=== PATIENT | male | born 1970 | race Caucasian/White ===

== ENCOUNTER 2017-08-31 08:51 | Emergency (ER) | payer BC, MEDICAID ==
[~2017-08-31] VITALS: Ht 172.7 cm; Wt 66.0 kg
[2017-08-31] MEDS ORDERED: IBUP-1222 PO (09:13)
[2017-08-31] MEDS ORDERED: HYDR-3240 PO (09:13)
[2017-08-31 09:54] LABS: RAPID INFLUENZA A POSITIVE (Negative)
[2017-08-31 09:55] LABS: RAPID INFLUENZA B Negative (Negative)
[2017-08-31] MEDS ORDERED: ACETAMINOPHEN 325 MG TABLET PO ONE (10:00)
[2017-08-31] MEDS ORDERED: ACETAMINOPHEN 325 MG TABLET ONE (10:05)
[2017-08-31 10:55] VITALS: BP 120/68
== END 2017-08-31 10:57 | disposition home or self-care (01) ==
LOC: ED 10:00
DX: J09.X2 Influenza due to identified novel influenza A virus with other respiratory manifestations (principal); F20.9 Schizophrenia, unspecified; F31.9 Bipolar disorder, unspecified
CPT/HCPCS: 71020; 87400; 93005; 99285

== ENCOUNTER 2017-12-31 18:16 | Emergency (ER) | payer MEDICAID ==
[~2017-12-31] VITALS: Ht 172.7 cm; Wt 61.8 kg
[~2017-12-31 18:16] MED LIST: HYDR-3240 PO; IBUP-1222 PO
[2017-12-31 18:17] VITALS: BP 122/80
[2017-12-31 19:01] LABS: BASOPHILS # (AUTO) 0.02 x10^3/uL (0-0.1); BASOPHILS % (AUTO) 0 % (0-1); EOSINOPHILS # (AUTO) 0.28 x10^3/uL (0-0.4); EOSINOPHILS % (AUTO) 2 % (1-7); LYMPHOCYTES # (AUTO) 2.46 x10^3/uL (1-3.4); LYMPHOCYTES % (AUTO) 22 % (22-44); MD NO; MEAN CORPUSCULAR HEMOGLOBIN 30.3 pg (27.5-34.5); MEAN CORPUSCULAR HGB CONC 34.2 g/dL (33.2-36.2); MEAN CORPUSCULAR VOLUME 88.6 fL (81-97); MEAN PLATELET VOLUME 7.7 fL (7.4-10.4); MONOCYTES % (AUTO) 4 % (2-9); NEUTROPHILS # (AUTO) 8.18 x10^3/uL (1.8-6.8); NEUTROPHILS % (AUTO) 72 % (42-75); PLATELET COUNT 377 x10^3/uL (130-400); RED BLOOD COUNT 5.18 x10^6/uL (4.38-5.82); RED CELL DISTRIBUTION WIDTH 14.2 % (9.4-14.8)
[2017-12-31 19:12] LABS: ALBUMIN 3.8 g/dL (3.4-5.0); ANION GAP 12 mmol/L (5-15); CALCIUM 8.7 mg/dL (8.5-10.1); CHLORIDE 108 mmol/L (98-107); SALICYLATE LEVEL 2.6 mg/dL (2.8-20.0)
[2017-12-31 19:23] LABS: CREATININE 0.98 mg/dL (0.7-1.3)
[2017-12-31 19:24] LABS: ACETAMINOPHEN < 2 mcg/mL (10-30)
[2017-12-31 20:14] LABS: AMPHETAMINE SCREEN, URINE Positive (Negative); BARBITURATE SCREEN, URINE Negative (Negative); BENZODIAZEPINE SCREEN, URINE Negative (Negative); CANNABINOID SCREEN, URINE Negative (Negative); COCAINE SCREEN, URINE Negative (Negative); METHADONE SCREEN, URINE Negative (Negative); OPIATE SCREEN, URINE Negative (Negative)
[2017-12-31] MEDS ORDERED: TRAZ150T62 PO (22:06)
[2017-12-31] MEDS ORDERED: QUET300T5 PO (22:06)
[2017-12-31] MEDS ORDERED: FLUO10CA13 PO (22:06)
== END 2017-12-31 22:37 | disposition home or self-care (01) ==
LOC: ED 22:15
DX: J02.8 Acute pharyngitis due to other specified organisms (principal); B97.89 Other viral agents as the cause of diseases classified elsewhere; F31.9 Bipolar disorder, unspecified; F20.9 Schizophrenia, unspecified; F17.210 Nicotine dependence, cigarettes, uncomplicated; Z76.5 Malingerer [conscious simulation]; Z60.2 Problems related to living alone; Z91.14 Patient's other noncompliance with medication regimen
CPT/HCPCS: 36415; 71045; 80048; 80307; 80329; 82040; 85025; 87081; 87880; 99285; G0480

== ENCOUNTER 2018-01-02 06:52 | Emergency (ER) | payer MEDICAID ==
[~2018-01-02] VITALS: Ht 172.7 cm; Wt 62.0 kg
[~2018-01-02 06:52] MED LIST changes: +FLUO10CA13 PO; +QUET300T5 PO; +TRAZ150T62 PO
[2018-01-02] MEDS ORDERED: DEXAMETHASONE 4 MG TABLET ONE (07:20)
[2018-01-02] MEDS ORDERED: DEXAMETHASONE 4 MG TABLET PO ONE (07:30)
[2018-01-02 09:02] VITALS: BP 129/77
== END 2018-01-02 09:04 | disposition home or self-care (01) ==
LOC: ED 07:11
DX: J02.0 Streptococcal pharyngitis (principal); F20.9 Schizophrenia, unspecified; F31.9 Bipolar disorder, unspecified
CPT/HCPCS: 71046; 99284

== ENCOUNTER 2020-05-27 19:04 | Emergency (ER) | payer SELFPAY ==
[~2020-05-27] VITALS: Ht 170.2 cm; Wt 57.2 kg
[2020-05-27] MEDS ORDERED: ALBUTEROL/IPRATROPIUM 2.5MG/0.5MG, 3 ML ONE ×2 (19:29→19:38)
[2020-05-27] MEDS ORDERED: ALBUTEROL/IPRATROPIUM 2.5MG/0.5MG, 3 ML NPPB ONE (19:30)
--- NOTE | 2020-05-27 19:45 | NUR ---
PT C/O COUGH AND INCREASING SOB FOR ABOUT ONE HOUR ARTIFICIAL FLY TIER WITH CHRONIC COUGH. PT STATES, "IT S MY COPD." PT ON MONITOR. PT MEDICATED PER MD ORDER.
[2020-05-27] MEDS ORDERED: QUET400T4 PO (19:46)
[2020-05-27] MEDS ORDERED: TRAZ150T62 PO (19:46)
[2020-05-27 19:47] LABS: BASOPHILS # (AUTO) 0.05 x10^3/uL (0-0.1); BASOPHILS % (AUTO) 1 % (0-1); EOSINOPHILS # (AUTO) 0.24 x10^3/uL (0-0.4); EOSINOPHILS % (AUTO) 3 % (1-7); LYMPHOCYTES # (AUTO) 2.67 x10^3/uL (1-3.4); LYMPHOCYTES % (AUTO) 33 % (22-44); MD NO; MEAN CORPUSCULAR HEMOGLOBIN 30.7 pg (27.5-34.5); MEAN CORPUSCULAR HGB CONC 33.1 g/dL (33.2-36.2); MEAN CORPUSCULAR VOLUME 92.9 fL (81-97); MEAN PLATELET VOLUME 7.7 fL (7.4-10.4); MONOCYTES # (AUTO) 0.74 x10^3/uL (0.2-0.8); MONOCYTES % (AUTO) 9 % (2-9); NEUTROPHILS # (AUTO) 4.45 x10^3/uL (1.8-6.8); NEUTROPHILS % (AUTO) 55 % (42-75); PLATELET COUNT 344 x10^3/uL (130-400); RED BLOOD COUNT 4.73 x10^6/uL (4.38-5.82); RED CELL DISTRIBUTION WIDTH 12.8 % (9.4-14.8)
[2020-05-27 19:53] LABS: ALANINE AMINOTRANSFERASE 25 U/L (12-78); ALBUMIN 3.7 g/dL (3.4-5.0); ANION GAP 9 mmol/L (5-15); CALCIUM 8.5 mg/dL (8.5-10.1); CHLORIDE 110 mmol/L (98-107); CREATININE 0.96 mg/dL (0.7-1.3)
[2020-05-27 19:58] LABS: ALKALINE PHOSPHATASE 126 U/L (45-117); BILIRUBIN,TOTAL 0.3 mg/dL (0.2-1.0); TOTAL PROTEIN 7.4 g/dL (6.4-8.2); TROPONIN I < 0.015 ng/mL (0.000-0.045)
[2020-05-27] MEDS ORDERED: POTASSIUM CHLORIDE 20 MEQ TAB.ER.PRT ONE (20:19)
--- NOTE | 2020-05-27 20:20 | NUR ---
PT RESTING IN ROOM. PT REPORTS HE FEELS BETTER AFTER DUONEB.
[2020-05-27] MEDS ORDERED: MAGNESIUM OXIDE 400 MG TABLET ONE (20:21)
[2020-05-27 20:29] VITALS: BP 98/66
[2020-05-27] MEDS ORDERED: POTASSIUM CHLORIDE 20 MEQ TAB.ER.PRT PO ONE (20:30)
[2020-05-27] MEDS ORDERED: MAGNESIUM OXIDE 400 MG TABLET PO SCH (20:30)
--- NOTE | 2020-05-27 20:50 | NUR ---
DR. GONZALEZ AT BEDSIDE. HOLD ATIVAN PER DR. GONZALEZ PT IS RESTING IN NAD.
[2020-05-27] MEDS ORDERED: LORazepam 2 MG/ML, 1ML IVPush ONE (21:00)
== END 2020-05-27 21:21 | disposition home or self-care (01) ==
LOC: ED 21:15
DX: J44.1 Chronic obstructive pulmonary disease with (acute) exacerbation (principal); F17.210 Nicotine dependence, cigarettes, uncomplicated; Z72.9 Problem related to lifestyle, unspecified; E66.9 Obesity, unspecified; Z68.1 Body mass index [BMI] 19.9 or less, adult
CPT/HCPCS: 36415; 71045; 80053; 80307; 84484; 85025; 93005; 94640; 99285; 99406; J7512

== ENCOUNTER 2020-05-28 14:29 | Emergency (ER) | payer MEDICAID ==
[~2020-05-28 14:29] MED LIST changes: +QUET400T4 PO
--- NOTE | 2020-05-28 14:42 | NUR ---
TERMINAL WORKER. PT CALLED X1 TO TRIAGE, NO ANSWER.
--- NOTE | 2020-05-28 14:49 | NUR ---
PT LWBS. SECURITY ASSISTED PT TO CALL [facility] FOR SELF.
== END 2020-05-28 15:29 | disposition left against medical advice (07) ==
LOC: ED 14:39
DX: R68.89 Other general symptoms and signs (principal); Z53.21 Procedure and treatment not carried out due to patient leaving prior to being seen by health care provider